=== PATIENT | female | born 1940 | race Caucasian/White ===

== ENCOUNTER 2019-11-03 11:59 | Inpatient (IN) | payer OTHER ==
[~2019-11-03] VITALS: Ht 152.4 cm; Wt 62.2 kg
[2019-11-03 11:59] VITALS: BP 151/64
[2019-11-03] MEDS ORDERED: LOSARTAN POTAS100 MG PO (12:22)
[2019-11-03] MEDS ORDERED: CELEBREX 200 M200 M1 PO (12:23)
[2019-11-03] MEDS ORDERED: HYDROCHLOROTHIA25 M2 PO (12:23)
[2019-11-03 12:52] LABS: ABSOLUTE NEUTROPHILS 2.8 thou/uL (1.4-8.2); BASOPHILS 1.1 % (0.0-2.0); EOSINOPHILS 2.4 % (0.0-3.0); HEMOGLOBIN 13.1 gm/dL (12.0-15.0); LYMPHOCYTES 24.9 % (24.0-44.0); MCH 32.3 pg (26.0-34.0); MCHC 34.5 g/dL (28.0-37.0); MCV 93.7 fL (80.0-100.0); PLATELET COUNT 269 thou/uL (150-400); POLYS 61.6 % (36.0-66.0); RBC 4.05 mil/uL (4.20-5.00); RDW 12.7 % (10.5-14.5); WBC 4.6 thou/uL (4.0-11.0)
[2019-11-03 12:56] LABS: CALCIUM 9.4 mg/dL (8.5-10.1); CREATININE 0.8 mg/dL (0.6-1.0); POTASSIUM 3.4 mmol/L (3.5-5.1)
[2019-11-03 13:02] LABS: ALBUMIN 4.1 g/dL (3.4-5.0); TOTAL BILIRUBIN 0.8 mg/dL (0.2-1.0); TOTAL PROTEIN 7.3 g/dL (6.4-8.2)
[2019-11-03 13:04] LABS: URINE BILIRUBIN NEGATIVE (Negative); URINE BLOOD NEGATIVE (Negative); URINE CLARITY CLEAR; URINE COLOR YELLOW; URINE GLUCOSE-RANDOM* NEGATIVE (Negative); URINE KETONES 1+ (Negative); URINE LEUKOCYTES-REFLEX NEGATIVE (Negative); URINE NITRITE-REFLEX NEGATIVE (Negative); URINE PROTEIN (DIPSTICK) NEGATIVE (Negative); URINE SPECIFIC GRAVITY >= 1.030 (1.005-1.035); URINE UROBILINOGEN 0.2 E.U./dl (0.2-1.0)
--- NOTE | 2019-11-03 19:44 | NUR ---
WAITING FOR COVID-19 RESULT BEFORE CALLING FOR REPORT AND TAKING PT TO ROOM
[2019-11-03 20:01] VITALS: BP 138/51
--- NOTE | 2019-11-04 01:05 | NUR ---
PATIENT WAS ADMITTED TO [facility] UNIT FROM [facility] AND BROUGHT BY WC TO THE UNIT AT 200911/03/19. PATIENT WAS AWAKE AND A/0 TO PERSON AND SITUTATION. SHE IS VERY FORGETFUL AND COULD NOT REMEMBER WHO OUR PRESIDENT IS OR WHERE SHE IS. SHE KNOWS SHE'S SOMEWHERE NEAR A HOSPITAL. SHE STATES SHE LIVES IN AN APARTMENT AT [address] IN [place]. SHE STATES SHE WOKE UP TODAY AND DID NOT FEEL RIGHT. SHE STATES SHE HAD A LARGE BM AND THEN SHE REMEMBERS SHE JUST FELT ANGRY AND AGITATED. SHE STATES SHE DOESN'T KNOW WHY SHE HAS THESE EPISODES. SHE DENIES PAIN, ALTHOUGH SHE DOES HAVE A CHRONIC BACK PROBLEM. SHE HAS A SLOW STEADY GAIT WHEN AMBULATING FROM THE BED TO THE BATHROOM. SHE DENIES SI/AVH. SHE STATES WHEN SHE GETS SO MAD SHE FEELS LIKE SHE COULD JUST HURT SOMEONE. SHE STATES THAT SHE DOES TALK TO HERSELF ALOT BUT DENIES SEEING OR HEARING VOICES. PATIENT BROUGHT HER SUNGLASSES AND HAS THEM AT HER BEDSIDE. SHE STATES THAT HER EYES ARE SENSITIVE TO LIGHT AT TIMES. PATIENT IS CONTINENT FOR THE MOST PART BUT HAS STRESS INCONTINENCE AT TIMES. 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 SHE DOES HAVE ANXIETY BUT OTHERWISE HAS BEEN COOPERATIVE AND SOFT SPOKEN. PATIENT WAS HUNGRY WHEN SHE REACHED OUR UNIT AND A BOXED LUNCH WAS GIVEN TO HER. SHE DID EAT THE SANDWICH, YOGURT, PEACHES, CHIPS AND APPLEJUICE. PATIENT WAS ORIENTED TO ROOM AND ASSISTED TO THE BATHROOM AND GOWN CHANGED TO [facility] GOWN. LUNGS ARE CTA BILATERALLY, EVEN UNLABORED RESPIRATIONS. NO EDEMA NOTED THRUOUT. SKIN IS INTACT WITHOUT WOUNDS. HEART RATE IS REGULAR. ABDOMEN IS SOFT/NONTENDER AND ACTIVE BOWEL SOUNDS ALL 4 QUADS. PATIENT SETTLED AND IN BED AND HAS BEEN SLEEPING SINCE. BED IN LOW POSITION AND BED ALARM IS ON. [facility] WAS CALLED TO GET LIST OF MEDS BY DUNCAN Marcos RN. PATIENT HAS HER SISTER DPOA. ROUTINE ROUNDS TO ASSESS PATIENT SAFETY AND STATUS. CONTINUING TO MONITOR.
[2019-11-04 07:24] VITALS: BP 114/48
--- NOTE | 2019-11-04 07:50 | NUR ---
PT OUT IN DINING AREA. PT STATED SHE WANTED TO SEE HOW STUPID SHE WAS BUT DOESN'T REMEMBER. PT LUNGS CLEAR. PT UP AD RASHIDA. PT ORIENTED TO SELF.
--- NOTE | 2019-11-04 08:32 | NUR ---
PT TOOK MED THIS AM WITHOUT ANY ISSUES.
[2019-11-04 08:40] VITALS: BP 114/48
--- NOTE | 2019-11-04 08:52 | NUR ---
ADM KDUR 20 MEQ PO X1 FOR LOWER K+ LEVEL.
[2019-11-04 13:39] LABS: TSH 0.904 uIU/mL (0.358-3.740)
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
--- NOTE | 2019-11-04 18:59 | NUR ---
PT PLEASANT CONFUSED. TOLD HER THAT HER SISTER CALLED. SHE WANTED TO KNOW IF HER SISTER KNOWS ABOUT THIS NEW MED. RISPIRIDOL. PT TOOK MED WITHOUT ANY ISSUES. SHE HAS BEEN TO DINING ROOM FOR MEALS. PT WALKS WITHOUT ANY ISSUES.
--- NOTE | 2019-11-04 19:24 | NUR ---
Care of patient assumed at 1914. Patient is sleeping in bed. Awakened at 2109 for HS meds. Patient is med compliant. Oriented x 2. States "I just know I was brought here. I must have done something to cause that, right?" Refused assessment of HS, LS, BS. States she just wants to go back to sleep. Patient sleeping at each check.
[2019-11-04 20:08] VITALS: BP 139/62
[2019-11-05 07:40] VITALS: BP 124/52
[2019-11-05 09:58] VITALS: BP 124/58
--- NOTE | 2019-11-05 10:31 | NUR ---
ASSUMED CARE AT 0700 THIS MORNING. PT. WAS UP, DRESSED IN THE DINNING ROOM. SHE IS PLEASANT BUT CONFUSED. SHE DOES NOT ANSWER ANY OF MY QUESTIONS WITH WORKS, JUST SHOOK HER HEAD AFFIRMATIVE OR NEGATIVE. WHEN ASKED WHY SHE WAS NOT TALKING SHE REPLIED THAT IT IS SO NEW TO HER AND SHE IS NERVOUS ABOUT IT. SHE WAS PLEASANT WITH TAKING HER MEDICATIONS WITH ASSISTANCE, AND WITH HER ASSESSMENT. LUNGS CTA, HRR, DENIES PAIN, +PEDAL PULSES. SHE ATE PART OF HER BREAKFAST.
--- NOTE | 2019-11-05 19:21 | NUR ---
Care of patient assumed at 1915. Patient is sitting at a table in the day room. A/O x 2. Cooperative with assessment. Denies pain. Denies SI/HI. During assessment of orientation patient states "Yes, I know who the president is. He's more messed up than me and I'm sick." HS, LS, BS all WNL. Compliant with HS meds. Remains in DR until 2199 and then retires to bed.
[2019-11-05 19:29] VITALS: BP 129/63
[2019-11-06 07:48] VITALS: BP 147/61
[2019-11-06 09:05] VITALS: BP 147/61
--- NOTE | 2019-11-06 10:34 | NUR ---
1000 RESUMMED CARE FROM OVERNIGHT SHIFT THIS AM, PATIENT IN DAY ROOM SITTING QUIET. PATIENT ATE BREAKFAST TOOK MEDICATION WITHOUT INCIDENCE. PATIENT ORIENTED TO SELF ONLY CONFUSED AND STATES SHE DOES NOT KNOW THE YEAR PLACE OR DATE. PATIENTS ABDOMEN SOFT BOWEL SOUNDS PRESENT LUNGS CLEAR, PATIENT DENIES SI/HI/AH/VH AT PRESENT. PATIENT CALM COOPERATIVE WILL CONTINUE TO MONITOR PATIENT FOR SAFETY AND BEHAVIORS.
--- NOTE | 2019-11-06 19:21 | NUR ---
Care of patient assumed at 1914. Patient is sitting at a table in the day room, dozing on and off. Calm and cooperative with assessment. Oriented to person and place only. Denies AH/VH. Denies SI/HI. HS, LS, BS all WNL. Denies pain. Disorganized speech and loose associations. Compliant with HS meds. Losartan held for low SBP. Retires to bed at 2114.
[2019-11-06 19:32] VITALS: BP 98/59
[2019-11-07 06:14] LABS: ABSOLUTE NEUTROPHILS 3.3 thou/uL (1.4-8.2); BASOPHILS 0.7 % (0.0-2.0); EOSINOPHILS 4.5 % (0.0-3.0); HEMATOCRIT 36.8 % (37.0-47.0); HEMOGLOBIN 12.4 gm/dL (12.0-15.0); MCH 32.1 pg (26.0-34.0); MCHC 33.7 g/dL (28.0-37.0); MCV 95.2 fL (80.0-100.0); MONOCYTES 8.8 % (1.0-8.0); PLATELET COUNT 266 thou/uL (150-400); RBC 3.86 mil/uL (4.20-5.00); WBC 5.3 thou/uL (4.0-11.0)
[2019-11-07 07:00] LABS: CALCIUM 8.9 mg/dL (8.5-10.1); CREATININE 0.8 mg/dL (0.6-1.0); MAGNESIUM 1.7 mg/dL (1.8-2.4); POTASSIUM 4.1 mmol/L (3.5-5.1)
[2019-11-07 07:16] VITALS: BP 99/51
[2019-11-07 09:16] VITALS: BP 115/75
--- NOTE | 2019-11-07 11:06 | NUR ---
1100 RESUMMED CARE FROM OVRNIGHT SHIFT THIS AM, PATIENT IN BED HAD A EPISODE OF INCONTIENCE. I CLEANED PATIENT UP AND GOT HER READY FOR BREAKFAST IN DAYROOM. PATIENT ATE BREAKFAST TOOK MEDICATION WITHOUT INCIDENCE; PATIENTS ABDOMEN SOFT ROUND BOWEL SOUNDS PRESENT. PATIENTS LUNGS CLEAR PATIENT DENIES SI/HI/AH/VH AT PRESENT. PATIENT IS ORIENTED TIMES 2 PATIENT USES A WALKER TO HELP WITH GAIT. PATIENT QUIET COOPERATIVE PARTICIPATED IN GROUPS WILL CONTINUE TO MONITOR PATIENT FOR SAFETY AND BEHAVIORS.
--- NOTE | 2019-11-07 11:46 | NUR ---
LAISHA contacted [facility] and scheduled a family meeting for 1330 today. LAISHA faxed udpates to Erika with BD of [facility]. SW team will continue to follow pt during her stay on this unit.
[2019-11-07 19:13] VITALS: BP 142/60
[2019-11-07 21:05] LABS: SYPHILIS AB Non Reactive (Non Reactive)
--- NOTE | 2019-11-08 03:28 | NUR ---
11-07-19 CARE TRANSFERED 1914 OBSERVED PT SITTING IN DAY ROOM. 1924 PT AAOX2, CALM AND COOPERATIVE, VSS, RR EVEN AND NONLABORED ON RA. PT DENIES PAIN AND SI/SH/HI/VAH. PT HAD NO DIFFICULTIES DURING MEDICATION ADMIN. ZERO S/S OF ACUTE EMOTIONAL OR MEDICAL DISTRESS. WILL CONTINUE TO MONITOR PER [facility] PROTOCOL.
[2019-11-08 07:17] VITALS: BP 90/48
[2019-11-08 09:35] VITALS: BP 142/60
--- NOTE | 2019-11-08 11:29 | NUR ---
LAISHA and Dr. Nam hosted a family meeting with Lissa in which the doctor discussed pt's dx and her need for a higher level of care. Lissa agreed and said that she may not want to remain with [place] for memory care. She also said pt will need a Medicaid application to pay for her care. LAISHA team will continue to follow pt during her stay on this unit.
[2019-11-08 19:13] VITALS: BP 120/60
--- NOTE | 2019-11-09 03:43 | NUR ---
11-08-19 CARE TRANSFERED 1914. 1924 PT STANDING IN BATHROOM, ASSISTED PT WITH BLUE PANTS, NOTED MODERATE BROWN FIRM BM IN PULL UP ON FLOOR AND YELLOW URINE IN TOILET. PT AAOX2, VSS, RR EVEN AND NONLABORED ON RA. PT DENIES ANY NEW CONCERNS AT THIS TIME. PT DENIES PAIN AND SI/SH/HI/VAH. PT HAD NO DIFFICULTIES DURING MEDICATION ADMIN. ZERO S/S OF ACUTE EMOTIONAL OR MEDICAL DISTRESS NOTED. WILL CONTINUE TO MONITOR PER [facility] PROTOCOL.
[2019-11-09 07:22] VITALS: BP 127/64
[2019-11-09 12:26] VITALS: BP 155/51
--- NOTE | 2019-11-09 12:36 | NUR ---
ASSUMED CARE AT 0700. PT. IS PLEASANT AND COOPERATIVE. SHE IS A&OX2. SHE IS ON THE UNIT MOST OF THE TIME UNLESS SHE HAS TO UTILIZE THE RESTROOM. SHE IS EATING WELL. TAKING HER MEDICATIONS WITHOUT PROBLEMS NOTED. SHE HAS NOT MADE ANY PARANOID STATEMENTS TODAY. SHE CAN AMBULATE WITH THE ASSISTANCE OF A WALKER. HER VSS, HRR, LUNGS CTA, ABD SOFT WITH + BOWEL SOUNDS IN ALL QUADRANTS. SHE REPORTED TO THIS [employer] REPRESENTATIVE THAT SHE HAD A BOWEL MOVEMENT YESTERDAY. SHE ATTENDED GROUP.
--- NOTE | 2019-11-09 13:22 | NUR ---
LAISHA faxed referrals to [facility], [facility], and [facility] per pt's sister. The plan is to find her placement at a facility that will later on accept Medicaid. Pt has too many assets at this time per pt's son in [place] to qualify for Medicaid. SW team will continue to follow pt during her stay on this unti.
--- NOTE | 2019-11-09 19:18 | NUR ---
Care of patient assumed at 1915. Patient is sitting in the day room at a table. This nurse begins patient assessments, and patient immediately goes to her room and lays down. By the time this nurse arrives at patient room, she has dozed off. Patient awakens easily. A/O x 2. States she has had a bad day because she sat by herself all day and "no one would help". When asked what she had needed help with, she stated going to the bathroom. Patient is reminded that she is not on fall precautions, and does not have to wait for staff assistance to use the restroom. Patient rates pain at 5/10, saying she aches all over. APAP 650mg is given with HS meds, and patient is sleeping shortly after.
[2019-11-09 20:20] VITALS: BP 116/48
[2019-11-10 07:27] VITALS: BP 91/68
[2019-11-10 08:10] VITALS: BP 91/68
--- NOTE | 2019-11-10 08:25 | NUR ---
PT SITTING AT DINING ROOM TABLE. PT TOOK MEDS WITH ENCOURAGEMENT. PT HAS HYPO BS. PT STATED NO GOAL TODAY OR CONCERNS. LUNGS CLEAR. LBM 11/07. PT UP WITH SUPERVISED GAIT. PT AFFECT IS FLAT.
--- NOTE | 2019-11-10 08:38 | NUR ---
RT Progress Note- Leslie's participation in the milieu and recreation groups is variable r/t her mood and alertness. At times she does not verbalize when spoken to. She appears flat in affect and often states that she is sleepy. She displays no paranoia or aggression during groups or RT interactions.
--- NOTE | 2019-11-10 12:18 | NUR ---
LAISHA received a vm from [facility] , asking for the type of care they should be looking for placement. LAISHA called back and spoke to Lissa and again explained that it is memory care that pt needs. SW received a vm from [place] stating they do not have memory care. LAISHA was told the admissions was out of the building for [facility]. LAISHA lft a msg for [facility] with Krystina Medrano. LAISHA team will continue to follow pt during her stay on this unit.
--- NOTE | 2019-11-10 17:50 | NUR ---
PT HAS SAT IN DINING ROOM MOST OF DAY. PT REST WITH EYES CLOSED AT TIMES. PT DID LOOK AT A MAGAZINE TODAY. PT DID GO TO BATHROOM WHEN ASKED IF SHE NEEDED TO GO.
[2019-11-10 19:23] VITALS: BP 145/57
--- NOTE | 2019-11-11 02:09 | NUR ---
Care of patient assumed at 1915. Patient is already laying in bed. Calm and cooperative with assessment. Bright affect - patient is smiling for the first time [facility] nurse is aware of. Denies any pain at this time. A/O x 2. HS, LS, BS all WNL. Denies concerns or goals. Losartan was discontinued tonight, due to SBP consistently below 130 in the evenings. Patient is compliant with HS Risperdal. Sleeping shortly after meds are given.
[2019-11-11 07:30] VITALS: BP 107/76
--- NOTE | 2019-11-11 12:48 | NUR ---
Yesterday, LAISHA received a call from [facility] stating they can accept pt.LAISHA arranged d/c with [facility] for Thursday. LAISHA provided an update to pt's brother in law Johann who said they do not want that placement. They looked at the property and didnt' like it. He said that [facility] has in fact accept pt. LAISHA explained that she has not heard from [facility] stating such. LAISHA contacted Piyush with [facility]. No answer. Left msg. Today, LAISHA spoke with Johann who said he is going to sign intake docs for pt today with Piyush and that Piyush told him he left a msg for SW. LAISHA explained that she does not have a vm or any msg from [facility]. LAISHA contacted Piyush again. No answer. LAISHA contacted the main facility. Piyush explained that 1. their phone lines have not been working properly and 2. pt has not been accepted and her application is still being reviewed. LAISHA explained that another facility has accepted pt and that if they do not come back in time LAISHA will have no choice but to d/c her to that facility. He said he will attempt to expedite this process; they are awaiting the bank statement from her brother in law. He said even if pt goes to another facility they can always tranfer her from there. LAISHA contacted Johann and provided an update. He said he does not want pt at [facility]. LAISHA again explained that if the approval does not come before pt is due to d/c, that she must go with the other facility. He said he was taking the bank statement to the facility right now. LAISHA team will continue to follow pt during her stay on this unit.
[2019-11-11 13:22] VITALS: BP 107/76
--- NOTE | 2019-11-11 13:28 | NUR ---
ASSUMED CARE AT 0700 THIS MORNING. PT. AWAKER ALERT, ORIENTED X1. SHE IS PLEASANT AND CONFUSED. SHE TAKES HER MONING MEDICATIONS WITHOUT DIFFICULTY. SHE IS EATING WELL. SHE ANSWERS ALL QUESTIONS, ALTHOUGH, SHE IS UNABLE TO RECALL SOME OF THE ANSWERS. SHE IS IN THE DINNING ROOM WITH PEERS BUT INTERACTS VERY LITTLE WITH THEM.
[2019-11-11 19:59] VITALS: BP 148/59
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
[2019-11-12 07:49] VITALS: BP 142/60
[2019-11-12 09:55] VITALS: BP 142/60
--- NOTE | 2019-11-12 12:04 | NUR ---
1200 RESUMMED CARE FROM OVERNIGHT SHIFT THIS AM, PATIENT IN ROOM LYING QUIET. I GOT PATIENT UP FOR BREAKFAST SHE TOOK MEDICATION WITHOUT INCIDENCE. PATIENTS ABDOMEN SOFT ROUND BOWEL SOUNDS PRESENT LUNGS CLEAR. PATIENT DENIES SI/HI/VH/AH AT PRESENT. PATIENT ORIENTED TO SELF ONLY SOME CONFUSION AND FORGETFULNESS. PATIENT USES WALKER TO HELP WITH GAIT AND IS STEADY WHILE AMBULATING. PATIENT COOPERATIVE CALM WILL CONTINUE TO MONITOR PATIENT FOR SAFETY AND BEHAVIORS.
--- NOTE | 2019-11-12 15:49 | NUR ---
@7713 LAISHA recieved a call from Eugene at [facility] on [address]. Concepcion stated she had spoked with the Pt's DPOa concerning placment. Concecpion requested a clincal referral. LAISHA faxed referral to [facility], . @5702 LAISHA recieved a phone call from Eugene stating [facility]. They are requesting a COVID test. [facility] will transport the Pt. D/C set for 11/15/2019 @ 2pm.
[2019-11-12 19:40] VITALS: BP 123/51
--- NOTE | 2019-11-13 03:27 | NUR ---
11-12-19 CARE TRANSFERED 1899 OBSERVED PT STANDING IN ROOM ORGANIZING BED LINENS. 1935 PT AAOX1, PRESENTS CONFUSED, CALM AND COOPERATIVE. PT VSS, RR EVEN AND NONLABORED ON RA. PT DENIES PAIN AND SI/SH/HI/VAH. DURING MEDICATION ADMIN PT HAD NO DIFFICULTIES. ZERO S/S OF ACUTE EMOTIONAL OR MEDICAL DISTRESS. WILL CONTINUE TO MONITOR PER [facility] PROTOCOL.
[2019-11-13 07:41] VITALS: BP 130/42
[2019-11-13 09:49] VITALS: BP 130/62
--- NOTE | 2019-11-13 11:01 | NUR ---
1030 RESUMMED CARE FROM OVERNIGHT SHIFT THIS AM, PATIENT IN DAY ROOM CALM QUIET. PATIENT ATE BREAKFAST AND TOOK MEDICATION WITHOUT INCIDENCE. PATIENT DENIES SI/HI/AH/VH AT PRESENT; PATIENTS ABDOMEN SOFT ROUND BOWEL SOUNDS PRESENT LUNGS CLEAR. PATIENT COOPERATIVE CALM ORIENTED TIMES [address] WILL CONTINUE TO MONITOR PATIENT FOR BEHAVIORS AND SAFETY.
[2019-11-13 19:28] VITALS: BP 149/62
--- NOTE | 2019-11-14 04:14 | NUR ---
11-13-19 CARE TRANSFERRED 1899 OBSERVED PT IN DAY ROOM SITTING WITH OTHERS. 2024 PT AAOX1, PT WAS UNSURE OF HOSPITAL NAME, PT WAS REORINATED TO PLACE, DATE AND TIME. PT VSS, RR EVEN AND NONLABORED ON RA. PT SPOKE ABOUT HAVING LEFT KNEE PAIN BUT DENIES IT IS HURTING AT THIS TIME. PT DENIES SI/SH/HI/VAH. PT REMAINED CALM AND COOPERATIVE THROUGHOUT NURSING ASSESSMENT. DURING MEDICATION ADMIN PT PRESENTED SADNESS AND REPORTED SHE HAS BEEN TRYING TO BE HAPPY BUT HAS NOT BEEN ABLE TO BE TRULY HAPPY, SHE CANNOT GET RID OF THE SADNESS. WE DISCUSSED ABOUT MAKING SURE NOT TO ISOLATE IN HER ROOM MAKE SURE PARTICIPATE IN GROUP AND OTHER ACTIVITES THAT ARE AVAILABLE, PT STATED SHE WILL TRY. PT DENIED SI AT THIS TIME. PT HAD NO DIFFICULTIES DURING MEDICATION ADMIN. AND COVID-19 TEST COMPLETED AND TAKEN TO LAB. DURING NEXT ROUND NOTED PT SUPINE WITH EYES CLOSED RESTING, RR EVEN AND NONLABORED ON RA. ZERO S/S OF ACUTE EMOTIONAL OR MEDICAL DISTRESS. WILL CONTINUE MONITOR PER [facility] PROTOCOL.
[2019-11-14 07:21] VITALS: BP 123/63
--- NOTE | 2019-11-14 14:12 | NUR ---
Pt hads been in day room most of the day. Karo has eaten most of what food has been offered to her and is taking fluids well. AM assesmrnt is lungs clear, pedal pulse x2 equal no edema noted . bowel sounds faint. karo participated in groups. Pt nupur BM as of this time today. Staff continues to monitor pt.
[2019-11-14 14:25] VITALS: BP 123/63
[2019-11-14 19:53] VITALS: BP 132/62
--- NOTE | 2019-11-14 22:10 | NUR ---
Care of patient assumed at 1915. Patient is sitting in the day room at a table. Pleasant and cooperative with assessment. Denies pain, but states she has pressure in her lower abdomen. Can't remember when last BM was. BS active x 4. Agrees to taking MOM with HS meds. Oriented to self only and recognizes her confusion. Compliant with HS meds. Retires to bed shortly after receiving meds. Discharge is planned for tomorrow.
[2019-11-15 07:31] VITALS: BP 131/77
[2019-11-15] MEDS ORDERED: CELEBREX 200 M200 M1 PO (10:27)
[2019-11-15] MEDS ORDERED: RISPERDAL 1 MG T1 MG PO (10:28)
[2019-11-15] MEDS ORDERED: VITAMIN D325 MC1 PO (10:29)
[2019-11-15] MEDS ORDERED: HYDROCHLOROTHIA25 M2 PO (10:29)
[2019-11-15 10:59] VITALS: BP 131/77
--- NOTE | 2019-11-15 12:09 | NUR ---
1200 RESUMMED CARE FROM OVERNIGHT SHIFT THIS AM, PATIENT IN DAY ROOM THIS MORNING WAITING FOR BREAKFST. PATIENT ATE WELL TOOK MEDICATION WITHOUT INCIDENCE. PATIENTS ABDOMEN SOFT ROUND BOWEL SOUNDS PRESENT LUNGS CLEAR. PATIENT DENIES SI/HI/AH/VH AT PRESENT, PATIENT CALM COOPERATIVE ORIENTED TO SELF AND PLACE. PATIENT PARTICIPATED IN GROUP AND HAS NOT DISPLAYED ANY BEHAVIORS. WILL CONTINUE TO MONITOR FOR PATIENT AND BEHAVIORS.
--- NOTE | 2019-11-15 14:16 | NUR ---
SERGEI D/C NOTE SERGEI faxed discharge documents for pt to [facility]. SERGEI filed the confirmation page in pt's hospital file. No other needs for [facility] team to address at this time.
== END 2019-11-15 14:40 | disposition short-term general hospital (02) | DRG 57 ==
LOC: ER 11:59 → SBH 16:29 → EROBS 16:29 → SBH 20:01
PROVIDERS: Nurse Practitioner; Physician Assistant; ADMIT Psychiatry & Neurology Psychiatry; ATTEND Psychiatry & Neurology Psychiatry
DX: G30.9 Alzheimer's disease, unspecified (principal); F02.81 Dementia in other diseases classified elsewhere, unspecified severity, with behavioral disturbance; E87.6 Hypokalemia; M19.90 Unspecified osteoarthritis, unspecified site; F41.9 Anxiety disorder, unspecified; I10 Essential (primary) hypertension; M06.9 Rheumatoid arthritis, unspecified; Z79.899 Other long term (current) drug therapy; Z90.710 Acquired absence of both cervix and uterus; Z03.818 Encounter for observation for suspected exposure to other biological agents ruled out
CPT/HCPCS: 10880